=== PATIENT | male | born 1985 | race Caucasian/White ===

== ENCOUNTER → 2020-09-26 | Outpatient (CLI) | payer MEDICARE, OTHER, MEDICAID ==
--- NOTE | 2020-09-26 12:47 | Diagnostic Imaging Report ---
EXAMINATION: US Retroperitoneal Complete. TECHNIQUE: Multiple real-time grayscale images were obtained over the kidneys in various projections bilaterally. HISTORY: UTI. COMPARISON: None available. FINDINGS: The right kidney demonstrates normal echogenicity and cortical thickness. The right kidney measures 10.4 x 5.5 x 6.0 cm. No hydronephrosis. The left kidney demonstrates normal echogenicity and cortical thickness. The left kidney measures 10.5 x 5.6 x 5.0 cm. No hydronephrosis. There is a left renal cyst measuring 1.5 cm. The urinary bladder is normal. Bilateral ureteral jets are seen. The post void volume is 0 ml. IMPRESSION: 1. Unremarkable kidneys without hydronephrosis. Dictated by: Dictated on workstation # [id number]
== END ==
LOC: RAD 10:45
PROVIDERS: ATTEND Urology
DX: N39.0 Urinary tract infection, site not specified (principal); R32 Unspecified urinary incontinence
CPT/HCPCS: 76770